=== PATIENT | male | born 1985 | race Caucasian/White ===

== ENCOUNTER 2022-06-18 08:17 | Outpatient (CLI) | payer BC, SELFPAY ==
[2022-06-18 14:25] LABS: Albumin* 4.7 g/dL (3.3-5.0); Chloride* 103 mmol/L (96-114); Potassium* 4.2 mmol/L (3.6-5.1); Sodium* 141 mmol/L (135-149)
[2022-06-18 14:27] LABS: Carbon Dioxide* 33 mmol/L (20-32); Cholesterol* 291 mg/dL (90-199); Creatinine* 0.9 mg/dL (0.5-1.5); Estimated Glomerular Filt Rate 111 ml/min
[2022-06-18 14:28] LABS: Alanine Aminotransferase* 57 U/L (4-50); Alkaline Phosphatase* 56 U/L (40-150); Aspartate Amino Transferase* 31 U/L (12-35); Bilirubin Total* 0.7 mg/dL (0.1-1.5); Blood Urea Nitrogen* 12 mg/dL (5-24); Calcium* 9.4 mg/dL (8.4-10.6); Glucose* 94 mg/dL (60-115); HDL Cholesterol* 48 mg/dL (>=40); LDL Cholesterol Calculated 188 mg/dL (<100); Total Protein* 7.4 g/dL (6.0-8.3); Triglycerides* 277 mg/dL (40-149)
[2022-06-18 14:41] LABS: TSH With Reflex to FT4* 0.922 uIU/mL (0.270-4.200)
== END 2022-06-18 08:18 | disposition home or self-care (01) ==
PROVIDERS: PCP Physician Assistant Medical; Visit Provider Physician Assistant Medical
DX: Z00.00 Encounter for general adult medical examination without abnormal findings (principal); R03.0 Elevated blood-pressure reading, without diagnosis of hypertension; Z13.6 Encounter for screening for cardiovascular disorders; Z13.29 Encounter for screening for other suspected endocrine disorder
CPT/HCPCS: 80053; 80061; 84443

== ENCOUNTER 2022-12-13 08:00 | Outpatient (CLI) | payer BC, SELFPAY | END 2022-12-13 08:01 | disposition home or self-care (01) | LOC: NFLDREF 12-16 08:41 | PROVIDERS: PCP Physician Assistant Medical; Referring Provider Physician Assistant Medical; Visit Provider Physician Assistant Medical | DX: E78.5 Hyperlipidemia, unspecified (principal) | CPT/HCPCS: 80061 ==

== ENCOUNTER 2023-03-04 08:10 | Outpatient (CLI) | payer BC, SELFPAY | END 2023-03-04 08:11 | disposition home or self-care (01) | PROVIDERS: PCP Physician Assistant Medical; Referring Provider Physician Assistant Medical; Visit Provider Physician Assistant Medical | DX: E78.5 Hyperlipidemia, unspecified (principal) | CPT/HCPCS: 80061; 84450; 84460 ==

== ENCOUNTER 2024-04-05 04:09 | Outpatient (CLI) | payer BC, SELFPAY | END 2024-04-05 04:10 | disposition home or self-care (01) | LOC: NFLDREF 04-06 18:36 | PROVIDERS: PCP Physician Assistant Medical; Referring Provider Physician Assistant Medical; Visit Provider Physician Assistant Medical | DX: E78.5 Hyperlipidemia, unspecified (principal); R03.0 Elevated blood-pressure reading, without diagnosis of hypertension; B00.9 Herpesviral infection, unspecified; E78.2 Mixed hyperlipidemia; Z98.890 Other specified postprocedural states; B00.1 Herpesviral vesicular dermatitis | CPT/HCPCS: 80053; 80061; 84443 ==